=== PATIENT | male | born 1975 | race Caucasian/White ===

== ENCOUNTER 2016-09-23 20:11 | Emergency (ER) | payer OTHER ==
--- NOTE | 2016-09-24 04:25 | ED CLINICAL REPORT ---
Clinical Report - Physicians/Mid Levels [facility] [address] [place] [address] 09/23/2016 20:15 [id number] Time Seen: 20:38 Mar 2016. Arrived- By private vehicle. Historian- patient and family. HISTORY OF PRESENT ILLNESS Chief Complaint: DELUSIONAL. This started about 2 weeks ago. (patient here today with sister. He says that he hasn't slept for the last 2 weeks. He says that the [employer] is trying to electrocute him through his phone. He's been feelingoccasional sharp jolts of electricity through his phone and believes that this group is doing it. He has a history of bipolar disorder and is currently taking his medications according to him. He denies any suicidal or homicidalthoughts at this time.). The patient has exhibited a recent behavior change reported by a sibling. He has been aggressive. Has not been eating or sleeping. He has had anxiety and delusions. Has exhibited unusual behavior and been paranoid. No suicidal thoughts or self-injury inflicted. The symptoms are described as severe. No injury is present. Similar symptoms previously: None. Recent medical care: Not recently seen/assessed. REVIEW OF SYSTEMS The patient has had anorexia, palpitations, skin rash and a sleep disorder. No chest pain, abdominal pain, alteration in mental status or diabetic symptoms. All systems otherwise negative, except as recorded above. PAST HISTORY See nurses notes. No history of prior suicide attempt. No history of heart disease, lung disease, hypertension or diabetes mellitus. Bipolar disorder. SOCIAL HISTORY History of drug use: marijuana. No heroin or methamphetamines. Recently used drugs today. ADDITIONAL NOTES The nursing notes have been reviewed. PHYSICAL EXAM Appearance: Alert. No acute distress. Patient is uncooperative. Eyes: Pupils equal, round and reactive to light. Neck: Normal inspection. Neck supple. CVS: Normal heart rate and rhythm. Heart sounds normal. Respiratory: Breath sounds normal. Chest nontender. Abdomen: Soft and nontender. Back: No tenderness. Skin: Skin warm and dry. Normal skin color. Normal skin turgor. Extremities: Extremities exhibit normal ROM. No lower extremity edema. Psych / Neuro: Cognition normal. Inattentive. The patient exhibits altered thought processes. Appears to have persecution delusions. He expresses obsessions and compulsions. He does not appear to understand his illness. Cranial nerves normal (as tested). No motor deficit. No sensory deficit. LABS, X-RAYS, AND EKG Laboratory Tests: CBC w Diff: (EHSAN: 09/23/2016 21:25) ( [facility] 09/23/2016 21:43) Final results Test Result Flag Units (Reference) WHITE BLOOD COUNT 10.9 K/uL (4.5-11.5) RED BLOOD COUNT 4.87 M/uL (4.50-5.90) HEMOGLOBIN 14.6 gm/dL (13.5-17.5) HEMATOCRIT 44.1 % (41.0-53.0) MEAN CELL VOLUME 91 fL (80-100) MEAN CORPUSCULAR HGB 30 pg (26-34) MEAN CORPUSCULAR HGB CONC 33 g/dL (31-37) RED CELL DISTRIBUTION WIDTH 13.3 % (11.6-14.8) PLATELET COUNT 275 K/uL (150-400) NEUTROPHIL % 70.9 % (50-75) LYMPH % 21.7 L % (25-40) MONO % 5.4 % (3-14) EOSINOPHIL % 1.0 % (0-4) BASOPHIL % 1.0 % (0-2) [id number]: (EHSAN: 09/23/2016 21:25) ( [facility] 09/23/2016 22:56) Final results Test Result Flag Units (Reference) FREE T4 (FREE THYROXINE) 1.30 ng/dL (0.78-4.13) Urine Drug Screen: (EHSAN: 09/23/2016 21:25) ( [facility] 09/23/2016 21:59) Final results Test Result Flag Units (Reference) AMPHETAMINE/METHAMPHETAMINE NEGATIVE (NEGATIVE) BARBITURATE NEGATIVE (NEGATIVE) BENZODIAZEPINE NEGATIVE (NEGATIVE) CANNABINOID POSITIVE H (NEGATIVE) COCAINE NEGATIVE (NEGATIVE) ECSTASY NEGATIVE (NEGATIVE) METHADONE NEGATIVE (NEGATIVE) OPIATE NEGATIVE (NEGATIVE) The urine drug screen is a qualitative screening test fordrug overdose and abuse. All screen results should beconsidered as presumptive.Drugs screened for are as follows:BenzodiazepinesCocaineAmphetamines/MetamphetaminesTHC (Tetrahydrocannabinol)OpiatesBarbituratesEcstasyMethadonePositive results are unconfirmed. For confirmation, notifythe lab for the specimen to be sent to the reference lab.All confirmations must be performed by a differentmethodology.The ingestion of natural herbal and plant productscontaining Ephedra/Ephedra metabolites can produce in urineone or more substances capable of cross reacting withamphetamine/methamphetamine immunoassays. These testsprovide a preliminary result only. A more specificalternative chemical method must be used to obtain aconfirmed analytical result. Salicylate Level: (EHSAN: 09/23/2016 21:25) ( [facility] 09/23/2016 21:58) Final results Test Result Flag Units (Reference) SALICYLATE <2.8 L mg/dL (2.8-20) CMP: (EHSAN: 09/23/2016 21:25) ( Msg[facility] 09/23/2016 22:13) Final results Test Result Flag Units (Reference) GLUCOSE 117 H mg/dL (70-110) BUN 16 mg/dL (7-18) CREATININE 0.9 mg/dL (0.6-1.3) Estimated GFR >60 mL/min Estimated GFR- >60 mL/min Note: Persistent reduction over 3 months in eGFR<60 mL/min/1.73 m2 defines CKD. Patients with eGFR values>=60 mL/min/1.73 m2 may also have CKD if evidence ofpersistent proteinuria. Additional information may be foundat www.kidney.org. SODIUM 142 mmol/L (136-145) POTASSIUM 3.3 L mmol/L (3.5-5.1) CHLORIDE 102 mmol/L (98-107) CARBON DIOXIDE 28 mmol/L (21-32) CALCIUM 9.8 mg/dL (8.5-10.1) TOTAL PROTEIN 8.3 H g/dL (6.4-8.2) ALBUMIN 4.7 g/dL (3.3-5.0) BILIRUBIN, TOTAL 0.5 mg/dL (0.0-1.0) ALKALINE PHOSPHATASE 63 U/L (46-116) AST (SGOT) 20 U/L (15-37) ALT (SGPT) 25 U/L (12-78) ACETAMINOPHEN < 2.0 L ug/mL (10-30) ETHYL ALCOHOL 3 mg/dL (3-10) THYROID STIMULATING HORMONE 11.919 H uIU/mL (0.34-3.74) . PROGRESS AND PROCEDURES Course of Care: 20:56 09/23/16. Patient denies suicidal or homicidal thoughts at this time however he's very aggressive and begins to get agitated when myself or the RN ask him his history. Initially denies suicidal or homicidal ideation but sister says she is afraid to take him home as he's been very aggressive with her father. Unfortunately, at this point in time I can't medically restrain him has no obvious threat to himself. 21:24 09/23/16. Patient returned to the ER and called the police on himself. He is in the room arguing with the [employer]. he has agreed tolet us medically clear him with lab work although I feel he is already medically cleared based on history and benign exam. 21:33 09/23/16. Patient becoming increasingly more agitated and aggressive. He has agreed to let us give him IV sedatives. Haldol and Ativan ordered. 22:31 09/23/16. TSH is slightly elevated but I doubt significant enough to cause his symptoms. We'll check a free T4 but otherwise he's been medically cleared for social work. 23:58 09/23/16. Patient already medically cleared and waiting on social work evaluation. 00:08 09/24/16. field crop i farmworker here evaluating the patient. Disposition: Transferred to [facility]. transferred in stable status. CLINICAL IMPRESSION Chronic bipolar disorder. (Electronically signed by Augustin Green, 09/24/2016 18:38)
--- NOTE | 2016-09-24 04:25 | ED NURSING NOTES ---
Clinical Report - Nurses [facility] [place] [address] 09/23/2016 20:15 Patient: MIRELLA JOSE TRIAGE Triage time 20:20. Acuity: LEVEL 3. Chief Complaint: (headache). --20:30 Donny Bejarano R.N. 20:20 09/23/16. BP: 142/73. HR: 91. RR: 20. O2 saturation: 99%. Temp: 98.5 F. Pain level now 09/03. --20:30 Donny Bejarano R.N. Weight: 74.8 kg stated. Height/Length: 70 inches Per Patient. BMI: 23.7. --20:28 Donny Bejarano R.N. Medications Testosterone Undecanoate Intramuscular. --20:25 Donny Bejarano R.N. Levothyroxine Sodium Oral. --20:25 Donny Bejarano R.N. ClonazePAM Oral. --20:26 Donny Bejarano R.N. Escitalopram Oxalate Oral. --22:09 Samantha Marrufo Mirtazapine Oral. --22:09 Samantha Marrufo. Medication/allergy information source: the patient. --20:30 Donny Bejarano R.N. Allergies Sulfa Antibiotics. --20:26 Donny Bejarano R.N. Acetaminophen. --20:26 Donny Bejarano R.N. History Arrived by private vehicle. Historian: patient. Accompanied by friend. Onset. (2016). ( Pt came because he believes he was electrocuted by his phone, by a restoration. He heard a pop behind his right ear. Pt believes he is being shocked by his phone all the time. His sister is in the room and says this is not his normal behavior. Pt does have a headache at this time.). Treatment PANTOGRAPHER: None. SOCIAL HX: Former smoker. Occasional alcohol use; consumes wine by the glass. History of heavy drug use: marijuana. Recently used drugs yesterday. SELF HARM ASSESSMENT: A self harm assessment was performed. The patient answered "no" to the question "Have you recently felt down, depressed, or hopeless?", "Have you noticed less interest or pleasure in doing things?", "Do you have thoughts of harming or killing yourself?", "Are you here because you tried to hurt yourself?", "Have you ever tried to hurt yourself before today?", "Have you recently had thoughts about harming or killing others?" and "Do you have any dangerous items in your possession?". The patient reports their behavior. --20:30 Donny Bejarano R.N. PROBLEMS: Depression. --20:27 Donny Bejarano R.N. ADDITIONAL SURGERIES: Inguinal Hernia Repair. Tonsillectomy & Adenoidectomy. --20:27 Donny Bejarano R.N. Interventions ID band on patient. To treatment room. --20:30 Donny Bejarano R.N. PHYSICAL ASSESSMENT GENERAL / NEURO / PSYCH: Alert. Oriented X 4. Appears anxious. RESPIRATORY: Respirations not labored. Chest nontender. Breath sounds within normal limits. CVS: Normal heart rate and rhythm. Capillary refill less than 2 seconds. GI / : Abdomen soft and nontender. Bowel sounds within normal limits. EXTREMITIES: Sensation intact in extremities. ROM of extremities within normal limits. BACK: Normal inspection of the neck and back. No neck or back tenderness. ROM of neck and back within normal limits. --20:30 Donny Bejarano R.N. GENERAL / NEURO / PSYCH: Mood/affect abnormal (anxious, paranoid and delusional). --22:12 Samantha Marrufo. NURSING PROGRESS NOTES Two patient identifiers checked. Call light placed in reach. Side rails up x 1. Bed placed in lowest position. Brakes of bed on. --20:31 Donny Bejarano R.N. ( The sister told me, outside the room, that bipolar runs in the family. The pt has been talking to god and that people have been following him. Pt has only a hx of depression and does take depression meds. Pt denies any SI or HI. The sister will remain with the pt, while he is here.). --20:39 Donny Bejarano R.N. ( Pt came back into the room and is being placed on the monitor. Pt is demanding and EKG. The police are now in the room and talking to the room. Sister is still in the room too.). --21:03 Donny Bejarano R.N. ( Carlyle BRUCE is here in the room.). --21:03 Donny Bejarano R.N. 21:04 09/23/16. BP: 150/89. HR: 112. RR: 20. O2 saturation: 96% on room air. --21:06 Samantha Marrufo ( Patient agreeable to being evaluated medically. Provider aware of situation. Security on standby.). --21:06 Samantha Marrufo 21:07 09/23/16. ( Patient reports static electricity affecting him. He reports his car, phone and ipad are all connected to the restoration of god whom he reports are watching him.). --21:07 Samantha Marrufo 21:37 09/23/2016 Site #1 started via IV in the right antecubital space with an 20g angiocath, with aseptic technique and good blood return; one attempt. Blood drawn: rainbow set. Labeled in the presence of the patient and sent to the lab. Saline lock flushed with 10 mL saline. --21:52 Samantha Marrufo 21:37 09/23/2016 Ativan (LORazepam) IVP 2 mg given over 1 minute(s) via site #1. Allergies verified, confirmed 5 rights and sedative warning given to the patient. IV patency established. IV site checked: no pain, redness, or swelling. IV flushed thoroughly pre- and post-medication administration. IVP given by RN. --21:52 Samantha Marrufo 21:42 09/23/2016 Haloperidol IVP 5 mg given over 1 minute(s) via site #1. Allergies verified, confirmed 5 rights and sedative warning given to the patient. IV patency established. IV site checked: no pain, redness, or swelling. IV flushed thoroughly pre- and post-medication administration. IVP given by RN. --:52 Samantha Marrufo Elopement precautions maintained: checks performed every 15 minutes, clothing / valuables removed and placed at the nurse's station, patient in view of the nurse's station. ( Patient becoming agitated and anxious that wifi in the hospital is allowing him to be tracked. Pulling off lines and shouting. Police at bedside. Provider has deemed patient unsafe and unable to care for himself. Patient stating, "If you cannot protect me I will leave". Patient moved with full cooperation to the safe room. Patient reports he feels safe in the locked safe room and will finally be able to sleep.). --21:55 Samantha Marrufo ( See paper restraint orders and flow sheet as well as T-system restraint flows sheet for details. Patient resting quietly at this time. States, " I feel safe in this room and I think I can sleep for the first time in weeks". Light dimmed, warm blankets provided, patient offered PO fluids and toileting. Patient cooperative and calm at this time. Family aware and agreeable to plan of care.). --22:08 Samantha Marrufo 22:23 09/23/16. ( Door opened per patient knocking and requesting nurse. Patient states he wants to leave, patient asked to go back into his room. Patient walking to room 15 and laying on back. Patient asked to return to his room. Patient refusing. Additional RN, Danilo Masters at bedside and escorting patient back to room 16.). --22:23 Samantha Marrufo ( Patient back into locked safe room. Patient agitated, states," you cannot keep me here". Patient knocking on the door.). --22:27 Samantha Marrufo 22:37 09/23/16. ( Patient family reports patient had previous issue with substance abuse, including an addiction to pills. Patient family reports he has been on suboxone). --22:37 Samantha Marrufo ( [facility] called, patient to be assessed. [facility] estimated time of arrival, 0100). --23:01 Samantha Marrufo ( Family informed about updated plan of care.). --23:01 Samantha Marrufo ( Patient calm at this time. Patient given PO fluids.). --23:03 Samantha Marrufo ( Pt was given a warm blanket.). --23:23 Donny Bejarano R.N. 23:50 09/23/16. ( Patient updated about plan of care. He states, " I dont need to be here, I am not crazy, you saw what my blood pressure and heart rate were doing when that cell phone and wifi were next to me!". Patient encouraged to rest. PO fluids offered. Warm blanket provided.). --23:50 Samantha Marrufo 00:00 09/24/16. ( [facility] arrived. Patient information reported to [facility]. Assessment to follow.). --00:18 Samantha Marrufo ( [facility] at bedside with patient. Security on standby). --00:39 Samantha Marrufo The patient reports no complaints. RESPIRATORY: No respiratory distress. SKIN: Skin is warm and dry. Skin color within normal limits. ( Patient pacing room, then laying down for a few minutes, then pacing.). --01:09 Samantha Marrufo 02:02 09/24/16. ( Patient given bedside commode. Patient upset that he is not free to go. Patient to be admitted to [facility].). --02:02 Samantha Marrufo 02:04 Patient requesting to go to the bathroom, patient offered urinal and BSC; declined both. --02:04 McQuoid, Vidhya, ER Tech1 GENERAL / NEURO / PSYCH: Alert. Oriented X 4. RESPIRATORY: No respiratory distress. SKIN: Skin is warm and dry. Skin color within normal limits. ( Spoke to [facility], they received a report regarding patient condition. Report given to Ramiro. Ramiro to call back when he confirms their ability to admit the patient to [facility].). --02:51 Samantha Marrufo 03:00 09/24/16. ( [facility] unable to accept patient due to his need/use of suboxone. [facility] to try to find alternative placement. Patient sleeping and has no complaints at this time.). --03:46 Samantha Marrufo 04:10 09/24/16. GENERAL / NEURO / PSYCH: Alert. Oriented X 4. RESPIRATORY: No respiratory distress. Breath sounds normal. SKIN: Skin is warm and dry. ( Patient to be a admitted to [facility] in [place]. Patient served by [facility]. Patient calm and cooperative.). --05:10 Samantha Marrufo 05:20 09/24/16. ( Patient sleeping. No complaints at this time.). --05:20 NiruSamantha damian The patient reports no complaints and he is resting quietly. RESPIRATORY: No respiratory distress. SKIN: Skin is warm and dry. Skin color within normal limits. --06:15 NiruJoaquin damiannah 06:37 09/24/16. ( Patient given breakfast tray, update on Estimated time of departure. Patient is calm and cooperative at this time.). --06:37 NiruJoaquinSamantha <<STRICKEN ENTRY-- Care transferred and report given (Deirdre PRIDE). --07:17 NiruSamantha damian --END STRIKE>> Correction --07:18 NiruJoaquinSamantha Care transferred and report given (Wilbert Jasso). --07:18 Niru Samantha. Restraint Flowsheet 21:35 09/23/16. Initial restraint assessment. He has demonstrated non-violent behavior including agitation, inability to follow directions and pulling at tubes that requires restraints. Alternatives to restraints have been attempted via patient teaching, reality orientation by redirection of behavior and comfort measures; assessment for possible underlying medical problem. Alternative to restraints failed: patient inability to follow directions and remains agitated. Restraint education was given to the patient's family. Voiced understanding regarding the need for restraints. Chemical restraints- see medication section. (Locked safe room). Observed by a nurse. Assessment: airway- patent and respirations are equal and unlabored; circulation- capillary refill is less than 2 seconds; mental status- patient is calm; skin- intact, warm and color is within normal limits; indwelling lines / tubes- performing without impedence of flow; behavior is cooperative. Interventions: GI- food / liquids offered and toileting needs offered; emotional support offered (Lights dimmed and blankets provided, patient asking to be allowed to sleep.). --22:02 Niru Samantha. DISPOSITION / DISCHARGE Report was given to a nurse via a phone call. All questions were answered. Report was acknowledged and care was transferred. (Amos PRIDE). ( Bed obtained at [facility].). Patient's personal items include: shirt, pants, shoes and cell phone; items were placed in belongings bag. --05:50 Niru Samantha 08:19 09/24/16. BP: 141/82 (regular adult cuff) taken on the left arm, via an automated monitor, while sitting. HR: 105. RR: 20 (regular). O2 saturation: 98% on room air. Temp: 98.8 F. --08:25 Kimi Prakash 08:05 09/24/2016 Site #1 removed upon discharge. Catheter intact. Bandaid applied. --09:04 Valarie Perez R.N. late entry - 08:10 09/24/16. Departure time: 03 03Sep 24 2016. Condition at departure: unchanged. No learning barriers present. Discharge instructions provided and reviewed with the patient (EMT). Patient verbalized understanding. Verbalized understanding (EMT). The patient was discharged by the physician. He was discharged ([facility]) and accompanied by EMT. He left the Emergency Department ambulatory and via ambulance. ( EMT). ( Patient understands he is being transferred to [facility] for care, patient was reporting to me that he downloaded an jt on his phone on God since he just became a Christianity and he started getting electrical shocks through the phone. He states he became agitated when no one believed him. He states he knows he can get some help at [facility], he has never been there before but has heard about the place). --09:09 Valarie Perez R.N. late entry - 08:10. ( Patient states no pain at this time). --09:10 Valarie Perez R.N. Locked/Released at 09/24/2016 9:10 by Valarie Perez R.N.
--- NOTE | 2016-09-24 04:25 | ED ORDER SUMMARY ---
..... Patient: MIRELLA JOSE OrderSheet [facility] VisitID: [id number] [address] [place] [address] 41y, M Registration Date/Time: 09/23/2016 ORDER SHEET Weight: 74.8 kg (stated) Allergies: Sulfa Antibiotics, Acetaminophen GENERAL ORDERS: Salicylate Level Urgent (21:13 09/23/2016 JCoates) (Ack 21:20 [facility] ER Tech1) (21:44 [facility] ER Tech1) Acetaminophen Level Urgent (21:13 09/23/2016 JCoates) (Ack 21:20 [facility] ER Tech1) (21:44 [facility] ER Tech1) CBC w Diff Urgent (21:13 09/23/2016 JCoates) (Ack 21:20 [facility] ER Tech1) (21:44 [facility] ER Tech1) CMP Urgent (21:13 09/23/2016 JCoates) (Ack 21:20 [facility] ER Tech1) (21:44 [facility] ER Tech1) Urine Drug Screen Urgent (21:13 09/23/2016 JCoates) (Ack 21:20 [facility] ER Tech1) (21:44 [facility] ER Tech1) Ethyl Alcohol Urgent (21:13 09/23/2016 JCoates) (Ack 21:20 [facility] ER Tech1) (21:44 [facility] ER Tech1) TSH Urgent (21:13 09/23/2016 JCoates) (Ack 21:20 [facility] ER Tech1) (21:44 [facility] ER Tech1) FT4(Free T4) Urgent (22:31 09/23/2016 JCoates) (Ack 22:41 [facility] ER Tech1) (22:41 [facility] ER Tech1) UA-Culture if indicated Urgent (23:21 09/23/2016 JCoates) (23:35 [facility] ER Tech1) MEDICATION ORDERS: IV FLUIDS: IV Saline Lock (21:13 09/23/2016 JCoates) (21:52 HSoule) Haloperidol IV 5 mg (HIGH ALERT MEDICATION) (21:33 09/23/2016 JCoates) (21:52 HSoule) Ativan IV 2 mg (NOW) (21:33 09/23/2016 JCoates) (21:52 HSoule) ORDER SHEET NOTES: [Electronically signed by Valarie Perez R.N. (09:10 09/24/2016)] [Electronically signed by Augustin Green (18:38 09/24/2016)] [Electronically locked/signed by Valarie Perez R.N. (09:10 09/24/2016)]
--- NOTE | 2016-09-24 04:25 | ED NURSING NOTES ---
Clinical Report - Nurses [facility] [place] [address] 09/23/2016 20:15 Patient: MIRELLA JOSE TRIAGE Triage time 20:20. Acuity: LEVEL 3. Chief Complaint: (headache). --20:30 Donny Bejarano R.N. 20:20 09/23/16. BP: 142/73. HR: 91. RR: 20. O2 saturation: 99%. Temp: 98.5 F. Pain level now 09/03. --20:30 Donny Bejarano R.N. Weight: 74.8 kg stated. Height/Length: 70 inches Per Patient. BMI: 23.7. --20:28 Donny Bejarano R.N. Medications Testosterone Undecanoate Intramuscular. --20:25 Donny Bejarano R.N. Levothyroxine Sodium Oral. --20:25 Donny Bejarano R.N. ClonazePAM Oral. --20:26 Donny Bejarano R.N. Escitalopram Oxalate Oral. --22:09 Samantha Marrufo Mirtazapine Oral. --22:09 Samantha Marrufo. Medication/allergy information source: the patient. --20:30 Donny Bejarano R.N. Allergies Sulfa Antibiotics. --20:26 Donny Bejarano R.N. Acetaminophen. --20:26 Donny Bejarano R.N. History Arrived by private vehicle. Historian: patient. Accompanied by friend. Onset. (2016). ( Pt came because he believes he was electrocuted by his phone, by a worship. He heard a pop behind his right ear. Pt believes he is being shocked by his phone all the time. His sister is in the room and says this is not his normal behavior. Pt does have a headache at this time.). 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 SOCIAL HX: Former smoker. Occasional alcohol use; consumes wine by the glass. History of heavy drug use: marijuana. Recently used drugs yesterday. SELF HARM ASSESSMENT: A self harm assessment was performed. The patient answered "no" to the question "Have you recently felt down, depressed, or hopeless?", "Have you noticed less interest or pleasure in doing things?", "Do you have thoughts of harming or killing yourself?", "Are you here because you tried to hurt yourself?", "Have you ever tried to hurt yourself before today?", "Have you recently had thoughts about harming or killing others?" and "Do you have any dangerous items in your possession?". The patient reports their behavior. --20:30 Donny Bejarano R.N. PROBLEMS: Depression. --20:27 Donny Bejarano R.N. ADDITIONAL SURGERIES: Inguinal Hernia Repair. Tonsillectomy & Adenoidectomy. --20:27 Donny Bejarano R.N. Interventions ID band on patient. To treatment room. --20:30 Donny Bejarano R.N. PHYSICAL ASSESSMENT GENERAL / NEURO / PSYCH: Alert. Oriented X 4. Appears anxious. RESPIRATORY: Respirations not labored. Chest nontender. Breath sounds within normal limits. CVS: Normal heart rate and rhythm. Capillary refill less than 2 seconds. GI / : Abdomen soft and nontender. Bowel sounds within normal limits. EXTREMITIES: Sensation intact in extremities. ROM of extremities within normal limits. BACK: Normal inspection of the neck and back. No neck or back tenderness. ROM of neck and back within normal limits. --20:30 Donny Bejarano R.N. GENERAL / NEURO / PSYCH: Mood/affect abnormal (anxious, paranoid and delusional). --22:12 Samantha Marrufo. NURSING PROGRESS NOTES Two patient identifiers checked. Call light placed in reach. Side rails up x 1. Bed placed in lowest position. Brakes of bed on. --20:31 Donny Bejarano R.N. ( The sister told me, outside the room, that bipolar runs in the family. The pt has been talking to god and that people have been following him. Pt has only a hx of depression and does take depression meds. Pt denies any SI or HI. The sister will remain with the pt, while he is here.). --20:39 Donny Bejarano R.N. ( Pt came back into the room and is being placed on the monitor. Pt is demanding and EKG. The police are now in the room and talking to the room. Sister is still in the room too.). --21:03 Donny Bejarano R.N. ( Carlyle BRUCE is here in the room.). --21:03 Donny Bejarano R.N. 21:04 09/23/16. BP: 150/89. HR: 112. RR: 20. O2 saturation: 96% on room air. --21:06 Samantha Marrufo ( Patient agreeable to being evaluated medically. Provider aware of situation. Security on standby.). --21:06 Samantha Marrufo 21:07 09/23/16. ( Patient reports static electricity affecting him. He reports his car, phone and ipad are all connected to the worship of god whom he reports are watching him.). --21:07 Samantha Marrufo 21:37 09/23/2016 Site #1 started via IV in the right antecubital space with an 20g angiocath, with aseptic technique and good blood return; one attempt. Blood drawn: rainbow set. Labeled in the presence of the patient and sent to the lab. Saline lock flushed with 10 mL saline. --21:52 Samantha Marrufo 21:37 09/23/2016 Ativan (LORazepam) IVP 2 mg given over 1 minute(s) via site #1. Allergies verified, confirmed 5 rights and sedative warning given to the patient. IV patency established. IV site checked: no pain, redness, or swelling. IV flushed thoroughly pre- and post-medication administration. IVP given by RN. --21:52 Samantha Marrufo 21:42 09/23/2016 Haloperidol IVP 5 mg given over 1 minute(s) via site #1. Allergies verified, confirmed 5 rights and sedative warning given to the patient. IV patency established. IV site checked: no pain, redness, or swelling. IV flushed thoroughly pre- and post-medication administration. IVP given by RN. --:52 Samantha Marrufo Elopement precautions maintained: checks performed every 15 minutes, clothing / valuables removed and placed at the nurse's station, patient in view of the nurse's station. ( Patient becoming agitated and anxious that wifi in the hospital is allowing him to be tracked. Pulling off lines and shouting. Police at bedside. Provider has deemed patient unsafe and unable to care for himself. Patient stating, "If you cannot protect me I will leave". Patient moved with full cooperation to the safe room. Patient reports he feels safe in the locked safe room and will finally be able to sleep.). --21:55 Samantha Marrufo ( See paper restraint orders and flow sheet as well as T-system restraint flows sheet for details. Patient resting quietly at this time. States, " I feel safe in this room and I think I can sleep for the first time in weeks". Light dimmed, warm blankets provided, patient offered PO fluids and toileting. Patient cooperative and calm at this time. Family aware and agreeable to plan of care.). --22:08 Samantha Marrufo 22:23 09/23/16. ( Door opened per patient knocking and requesting nurse. Patient states he wants to leave, patient asked to go back into his room. Patient walking to room 15 and laying on back. Patient asked to return to his room. Patient refusing. Additional RN, Danilo Masters at bedside and escorting patient back to room 16.). --22:23 Samantha Marrufo ( Patient back into locked safe room. Patient agitated, states," you cannot keep me here". Patient knocking on the door.). --22:27 Samantha Marrufo 22:37 09/23/16. ( Patient family reports patient had previous issue with substance abuse, including an addiction to pills. Patient family reports he has been on suboxone). --22:37 Samantha Marrufo ( [facility] called, patient to be assessed. [facility] estimated time of arrival, 0100). --23:01 Samantha Marrufo ( Family informed about updated plan of care.). --23:01 Samantha Marrufo ( Patient calm at this time. Patient given PO fluids.). --23:03 Samantha Marrufo ( Pt was given a warm blanket.). --23:23 Donny Bejarano R.N. 23:50 09/23/16. ( Patient updated about plan of care. He states, " I dont need to be here, I am not crazy, you saw what my blood pressure and heart rate were doing when that cell phone and wifi were next to me!". Patient encouraged to rest. PO fluids offered. Warm blanket provided.). --23:50 Samantha Marrufo 00:00 09/24/16. ( [facility] arrived. Patient information reported to [facility]. Assessment to follow.). --00:18 Samantha Marrufo ( [facility] at bedside with patient. Security on standby). --00:39 Samantha Marrufo The patient reports no complaints. RESPIRATORY: No respiratory distress. SKIN: Skin is warm and dry. Skin color within normal limits. ( Patient pacing room, then laying down for a few minutes, then pacing.). --01:09 Samantha Marrufo 02:02 09/24/16. ( Patient given bedside commode. Patient upset that he is not free to go. Patient to be admitted to [facility].). --02:02 Samantha Marrufo 02:04 Patient requesting to go to the bathroom, patient offered urinal and BSC; declined both. --02:04 McQuoid, Vidhya, ER Tech1 GENERAL / NEURO / PSYCH: Alert. Oriented X 4. RESPIRATORY: No respiratory distress. SKIN: Skin is warm and dry. Skin color within normal limits. ( Spoke to [facility], they received a report regarding patient condition. Report given to Ramiro. Ramiro to call back when he confirms their ability to admit the patient to [facility].). --02:51 Samantha Marrufo 03:00 09/24/16. ( [facility] unable to accept patient due to his need/use of suboxone. [facility] to try to find alternative placement. Patient sleeping and has no complaints at this time.). --03:46 Samantha Marrufo 04:10 09/24/16. GENERAL / NEURO / PSYCH: Alert. Oriented X 4. RESPIRATORY: No respiratory distress. Breath sounds normal. SKIN: Skin is warm and dry. ( Patient to be a admitted to [facility] in [place]. Patient served by [facility]. Patient calm and cooperative.). --05:10 Samantha Marrufo 05:20 09/24/16. ( Patient sleeping. No complaints at this time.). --05:20 NiruSamantha damian The patient reports no complaints and he is resting quietly. RESPIRATORY: No respiratory distress. SKIN: Skin is warm and dry. Skin color within normal limits. --06:15 NiruJoaquin damiannah 06:37 09/24/16. ( Patient given breakfast tray, update on Estimated time of departure. Patient is calm and cooperative at this time.). --06:37 NiruJoaquinSamantha <<STRICKEN ENTRY-- Care transferred and report given (Deirdre PRIDE). --07:17 NiruSamantha damian --END STRIKE>> Correction --07:18 NiruJoaquinSamantha Care transferred and report given (Wilbert Jasso). --07:18 Niru Samantha. Restraint Flowsheet 21:35 09/23/16. Initial restraint assessment. He has demonstrated non-violent behavior including agitation, inability to follow directions and pulling at tubes that requires restraints. Alternatives to restraints have been attempted via patient teaching, reality orientation by redirection of behavior and comfort measures; assessment for possible underlying medical problem. Alternative to restraints failed: patient inability to follow directions and remains agitated. Restraint education was given to the patient's family. Voiced understanding regarding the need for restraints. Chemical restraints- see medication section. (Locked safe room). Observed by a nurse. Assessment: airway- patent and respirations are equal and unlabored; circulation- capillary refill is less than 2 seconds; mental status- patient is calm; skin- intact, warm and color is within normal limits; indwelling lines / tubes- performing without impedence of flow; behavior is cooperative. Interventions: GI- food / liquids offered and toileting needs offered; emotional support offered (Lights dimmed and blankets provided, patient asking to be allowed to sleep.). --22:02 Niru Samantha. DISPOSITION / DISCHARGE Report was given to a nurse via a phone call. All questions were answered. Report was acknowledged and care was transferred. (Amos PRIDE). ( Bed obtained at [facility] Patient's personal items include: shirt, pants, shoes and cell phone; items were placed in belongings bag. --05:50 Niru Samantha 08:19 09/24/16. BP: 141/82 (regular adult cuff) taken on the left arm, via an automated monitor, while sitting. HR: 105. RR: 20 (regular). O2 saturation: 98% on room air. Temp: 98.8 F. --08:25 Kimi Prakash 08:05 09/24/2016 Site #1 removed upon discharge. Catheter intact. Bandaid applied. --09:04 Valarie Perez R.N. late entry - 08:10 09/24/16. Departure time: 03 03Sep 24 2016. Condition at departure: unchanged. No learning barriers present. Discharge instructions provided and reviewed with the patient (EMT). Patient verbalized understanding. Verbalized understanding (EMT). The patient was discharged by the physician. He was discharged ([facility]) and accompanied by EMT. He left the Emergency Department ambulatory and via ambulance. ( EMT). ( Patient understands he is being transferred to [facility] for care, patient was reporting to me that he downloaded an jt on his phone on God since he just became a Gnosticism and he started getting electrical shocks through the phone. He states he became agitated when no one believed him. He states he knows he can get some help at [facility], he has never been there before but has heard about the place). --09:09 Valarie Perez R.N. late entry - 08:10. ( Patient states no pain at this time). --09:10 Valarie Perez R.N. Locked/Released at 09/24/2016 9:10 by Valarie Perez R.N.
--- NOTE | 2016-09-24 04:25 | ED CLINICAL REPORT ---
Clinical Report - Physicians/Mid Levels [facility] [address] [place] [address] 09/23/2016 20:15 [id number] Time Seen: 20:38 Mar 2016. Arrived- By private vehicle. Historian- patient and family. HISTORY OF PRESENT ILLNESS Chief Complaint: DELUSIONAL. This started about 2 weeks ago. (patient here today with sister. He says that he hasn't slept for the last 2 weeks. He says that the [employer] is trying to electrocute him through his phone. He's been feelingoccasional sharp jolts of electricity through his phone and believes that this group is doing it. He has a history of bipolar disorder and is currently taking his medications according to him. He denies any suicidal or homicidalthoughts at this time.). The patient has exhibited a recent behavior change reported by a sibling. He has been aggressive. Has not been eating or sleeping. He has had anxiety and delusions. Has exhibited unusual behavior and been paranoid. No suicidal thoughts or self-injury inflicted. The symptoms are described as severe. No injury is present. Similar symptoms previously: None. Recent medical care: Not recently seen/assessed. REVIEW OF SYSTEMS The patient has had anorexia, palpitations, skin rash and a sleep disorder. No chest pain, abdominal pain, alteration in mental status or diabetic symptoms. All systems otherwise negative, except as recorded above. PAST HISTORY See nurses notes. No history of prior suicide attempt. No history of heart disease, lung disease, hypertension or diabetes mellitus. Bipolar disorder. SOCIAL HISTORY History of drug use: marijuana. No heroin or methamphetamines. Recently used drugs today. ADDITIONAL NOTES The nursing notes have been reviewed. PHYSICAL EXAM Appearance: Alert. No acute distress. Patient is uncooperative. Eyes: Pupils equal, round and reactive to light. Neck: Normal inspection. Neck supple. CVS: Normal heart rate and rhythm. Heart sounds normal. Respiratory: Breath sounds normal. Chest nontender. Abdomen: Soft and nontender. Back: No tenderness. Skin: Skin warm and dry. Normal skin color. Normal skin turgor. Extremities: Extremities exhibit normal ROM. No lower extremity edema. Psych / Neuro: Cognition normal. Inattentive. The patient exhibits altered thought processes. Appears to have persecution delusions. He expresses obsessions and compulsions. He does not appear to understand his illness. Cranial nerves normal (as tested). No motor deficit. No sensory deficit. LABS, X-RAYS, AND EKG Laboratory Tests: CBC w Diff: (EHSAN: 09/23/2016 21:25) ( [facility] 09/23/2016 21:43) Final results Test Result Flag Units (Reference) WHITE BLOOD COUNT 10.9 K/uL (4.5-11.5) RED BLOOD COUNT 4.87 M/uL (4.50-5.90) HEMOGLOBIN 14.6 gm/dL (13.5-17.5) HEMATOCRIT 44.1 % (41.0-53.0) MEAN CELL VOLUME 91 fL (80-100) MEAN CORPUSCULAR HGB 30 pg (26-34) MEAN CORPUSCULAR HGB CONC 33 g/dL (31-37) RED CELL DISTRIBUTION WIDTH 13.3 % (11.6-14.8) PLATELET COUNT 275 K/uL (150-400) NEUTROPHIL % 70.9 % (50-75) LYMPH % 21.7 L % (25-40) MONO % 5.4 % (3-14) EOSINOPHIL % 1.0 % (0-4) BASOPHIL % 1.0 % (0-2) [id number]: (EHSAN: 09/23/2016 21:25) ( [facility] 09/23/2016 22:56) Final results Test Result Flag Units (Reference) FREE T4 (FREE THYROXINE) 1.30 ng/dL (0.78-4.13) Urine Drug Screen: (EHSAN: 09/23/2016 21:25) ( [facility] 09/23/2016 21:59) Final results Test Result Flag Units (Reference) AMPHETAMINE/METHAMPHETAMINE NEGATIVE (NEGATIVE) BARBITURATE NEGATIVE (NEGATIVE) BENZODIAZEPINE NEGATIVE (NEGATIVE) CANNABINOID POSITIVE H (NEGATIVE) COCAINE NEGATIVE (NEGATIVE) ECSTASY NEGATIVE (NEGATIVE) METHADONE NEGATIVE (NEGATIVE) OPIATE NEGATIVE (NEGATIVE) The urine drug screen is a qualitative screening test fordrug overdose and abuse. All screen results should beconsidered as presumptive.Drugs screened for are as follows:BenzodiazepinesCocaineAmphetamines/MetamphetaminesTHC (Tetrahydrocannabinol)OpiatesBarbituratesEcstasyMethadonePositive results are unconfirmed. For confirmation, notifythe lab for the specimen to be sent to the reference lab.All confirmations must be performed by a differentmethodology.The ingestion of natural herbal and plant productscontaining Ephedra/Ephedra metabolites can produce in urineone or more substances capable of cross reacting withamphetamine/methamphetamine immunoassays. These testsprovide a preliminary result only. A more specificalternative chemical method must be used to obtain aconfirmed analytical result. Salicylate Level: (EHSAN: 09/23/2016 21:25) ( AzgRcvd 09/23/2016 21:58) Final results Test Result Flag Units (Reference) SALICYLATE <2.8 L mg/dL (2.8-20) CMP: (EHSAN: 09/23/2016 21:25) ( MsgRcvd 09/23/2016 22:13) Final results Test Result Flag Units (Reference) GLUCOSE 117 H mg/dL (70-110) BUN 16 mg/dL (7-18) CREATININE 0.9 mg/dL (0.6-1.3) Estimated GFR >60 mL/min Estimated GFR- >60 mL/min Note: Persistent reduction over 3 months in eGFR<60 mL/min/1.73 m2 defines CKD. Patients with eGFR values>=60 mL/min/1.73 m2 may also have CKD if evidence ofpersistent proteinuria. Additional information may be foundat www.kidney.org. SODIUM 142 mmol/L (136-145) POTASSIUM 3.3 L mmol/L (3.5-5.1) CHLORIDE 102 mmol/L (98-107) CARBON DIOXIDE 28 mmol/L (21-32) CALCIUM 9.8 mg/dL (8.5-10.1) TOTAL PROTEIN 8.3 H g/dL (6.4-8.2) ALBUMIN 4.7 g/dL (3.3-5.0) BILIRUBIN, TOTAL 0.5 mg/dL (0.0-1.0) ALKALINE PHOSPHATASE 63 U/L (46-116) AST (SGOT) 20 U/L (15-37) ALT (SGPT) 25 U/L (12-78) ACETAMINOPHEN < 2.0 L ug/mL (10-30) ETHYL ALCOHOL 3 mg/dL (3-10) THYROID STIMULATING HORMONE 11.919 H uIU/mL (0.34-3.74) . PROGRESS AND PROCEDURES Course of Care: 20:56 09/23/16. Patient denies suicidal or homicidal thoughts at this time however he's very aggressive and begins to get agitated when myself or the RN ask him his history. Initially denies suicidal or homicidal ideation but sister says she is afraid to take him home as he's been very aggressive with her father. Unfortunately, at this point in time I can't medically restrain him has no obvious threat to himself. 21:24 09/23/16. Patient returned to the ER and called the police on himself. He is in the room arguing with the [employer]. he has agreed tolet us medically clear him with lab work although I feel he is already medically cleared based on history and benign exam. 21:33 09/23/16. Patient becoming increasingly more agitated and aggressive. He has agreed to let us give him IV sedatives. Haldol and Ativan ordered. 22:31 09/23/16. TSH is slightly elevated but I doubt significant enough to cause his symptoms. We'll check a free T4 but otherwise he's been medically cleared for social work. 23:58 09/23/16. Patient already medically cleared and waiting on social work evaluation. 00:08 09/24/16. research worker kitchen here evaluating the patient. Disposition: Transferred to [facility]. transferred in stable status. CLINICAL IMPRESSION Chronic bipolar disorder. (Electronically signed by Augustin Green, 09/24/2016 18:38)
--- NOTE | 2016-09-24 04:25 | ED ORDER SUMMARY ---
..... Patient: MIRELLA JOSE OrderSheet [facility] VisitID: [id number] [address] [place] [address] 41y, M Registration Date/Time: 09/23/2016 ORDER SHEET Weight: 74.8 kg (stated) Allergies: Sulfa Antibiotics, Acetaminophen GENERAL ORDERS: Salicylate Level Urgent (21:13 09/23/2016 JCoates) (Ack 21:20 ALawrence ER Tech1) (21:44 ALawrence ER Tech1) Acetaminophen Level Urgent (21:13 09/23/2016 JCoates) (Ack 21:20 ALawrence ER Tech1) (21:44 ALawrence ER Tech1) CBC w Diff Urgent (21:13 09/23/2016 JCoates) (Ack 21:20 ALawrence ER Tech1) (21:44 ALawrence ER Tech1) CMP Urgent (21:13 09/23/2016 JCoates) (Ack 21:20 ALawrence ER Tech1) (21:44 ALawrence ER Tech1) Urine Drug Screen Urgent (21:13 09/23/2016 JCoates) (Ack 21:20 ALawrence ER Tech1) (21:44 ALawrence ER Tech1) Ethyl Alcohol Urgent (21:13 09/23/2016 JCoates) (Ack 21:20 ALawrence ER Tech1) (21:44 ALawrence ER Tech1) TSH Urgent (21:13 09/23/2016 JCoates) (Ack 21:20 ALawrence ER Tech1) (21:44 ALawrence ER Tech1) FT4(Free T4) Urgent (22:31 09/23/2016 JCoates) (Ack 22:41 ALawrence ER Tech1) (22:41 ALawrence ER Tech1) UA-Culture if indicated Urgent (23:21 09/23/2016 JCoates) (23:35 ALawrence ER Tech1) MEDICATION ORDERS: IV FLUIDS: IV Saline Lock (21:13 09/23/2016 JCoates) (21:52 HSoule) Haloperidol IV 5 mg (HIGH ALERT MEDICATION) (21:33 09/23/2016 JCoates) (21:52 HSoule) Ativan IV 2 mg (NOW) (21:33 09/23/2016 JCoates) (21:52 HSoule) ORDER SHEET NOTES: [Electronically signed by Valarie Perez R.N. (09:10 09/24/2016)] [Electronically signed by Augustin Green (18:38 09/24/2016)] [Electronically locked/signed by Valarie Perez R.N. (09:10 09/24/2016)]
--- NOTE | 2016-09-24 18:39 | ED MAR SUMMARY ---
..... Medication Administration Record [facility] [address] [place] [address] Patient: MIRELLA JOSE Visit ID: [id number] 41y, M Weight: 74.8 kg Height/Length: 70 in BMI: 23.7 ALLERGIES: Acetaminophen, Sulfa Antibiotics Given 21:37 09/23/2016 Samantha Marrufo, Medication Administered: ATIVAN [IVP] (LORAZEPAM), Dose: 2 mg IVP over 1 minute(s), Site: #1 right AC. Medication Ordered: Ativan IV 2 mg (NOW). Given 21:42 09/23/2016 Samantha Marrufo, Medication Administered: HALOPERIDOL [IVP], Dose: 5 mg IVP over 1 minute(s), Site: #1 right AC. Medication Ordered: Haloperidol IV 5 mg (HIGH ALERT MEDICATION).
--- NOTE | 2016-09-24 18:39 | ED DISCHARGE INSTRUCTIONS ---
Patient: MIRELLA JOSE General Instructions [facility] VisitID: [id number] [address] [place] [address] 41y, M Registration Date/Time: 09/23/2016 Chronic bipolar disorder. (Electronically signed by Augustin Green, 09/24/2016 18:38)
--- NOTE | 2016-09-24 18:39 | ED DISCHARGE INSTRUCTIONS ---
Patient: MIRELLA JOSE General Instructions [facility] VisitID: [id number] [address] [place] [address] 41y, M Registration Date/Time: 09/23/2016 Chronic bipolar disorder. (Electronically signed by Augustin Green, 09/24/2016 18:38)
--- NOTE | 2016-09-24 18:39 | ED MED RECONCILIATION SUMMARY ---
Patient: MIRELLA JOSE Medication Reconciliation Report [facility] VisitID: [id number] [address] [place] [address] 41y, M Registration Date/Time: 09/23/2016 Weight: 74.8 kg Height/Length: 70 in. BMI: 23.7 ALLERGIES: Acetaminophen, Sulfa Antibiotics The patient's Home Medications are listed below: THE FOLLOWING MEDICATIONS NEED TO BE RECONCILED: ClonazePAM Oral Escitalopram Oxalate Oral Levothyroxine Sodium Oral Mirtazapine Oral Testosterone Undecanoate Intramuscular The source(s) of the original Home Medication information: patient The following Medications were given to the patient in the Emergency Department: Haloperidol [IVP] IVP 5 mg, administered: 09/23/2016 9:42:00 PM Ativan [IVP] IVP 2 mg, administered: 09/23/2016 9:37:00 PM The following Medications were prescribed to the patient: None.
--- NOTE | 2016-09-24 18:39 | ED MAR SUMMARY ---
..... Medication Administration Record [facility] [address] [place] [address] Patient: MIRELLA JOSE Visit ID: [id number] 41y, M Weight: 74.8 kg Height/Length: 70 in BMI: 23.7 ALLERGIES: Acetaminophen, Sulfa Antibiotics Given 21:37 09/23/2016 Samantha Marrufo, Medication Administered: ATIVAN [IVP] (LORAZEPAM), Dose: 2 mg IVP over 1 minute(s), Site: #1 right AC. Medication Ordered: Ativan IV 2 mg (NOW). Given 21:42 09/23/2016 Samantha Marrufo, Medication Administered: HALOPERIDOL [IVP], Dose: 5 mg IVP over 1 minute(s), Site: #1 right AC. Medication Ordered: Haloperidol IV 5 mg (HIGH ALERT MEDICATION).
--- NOTE | 2016-09-24 18:39 | ED MED RECONCILIATION SUMMARY ---
Patient: MIRELLA JOSE Medication Reconciliation Report [facility] VisitID: [id number] [address] [place] [address] 41y, M Registration Date/Time: 09/23/2016 Weight: 74.8 kg Height/Length: 70 in. BMI: 23.7 ALLERGIES: Acetaminophen, Sulfa Antibiotics The patient's Home Medications are listed below: THE FOLLOWING MEDICATIONS NEED TO BE RECONCILED: ClonazePAM Oral Escitalopram Oxalate Oral Levothyroxine Sodium Oral Mirtazapine Oral Testosterone Undecanoate Intramuscular The source(s) of the original Home Medication information: patient The following Medications were given to the patient in the Emergency Department: Haloperidol [IVP] IVP 5 mg, administered: 09/23/2016 9:42:00 PM Ativan [IVP] IVP 2 mg, administered: 09/23/2016 9:37:00 PM The following Medications were prescribed to the patient: None.
== END 2016-09-24 08:10 ==
LOC: ED SRH 20:11
DX: F31.9 Bipolar disorder, unspecified (principal); Z87.891 Personal history of nicotine dependence; Z88.2 Allergy status to sulfonamides; Z88.6 Allergy status to analgesic agent
CPT/HCPCS: 90004; 90100; 90648; 92010; 92760; 92761; 92762; 92763; 92764; 92765; 92766; 92767; 92780; 93140; 95059; 97000